=== PATIENT | female | born 1935 | race Caucasian/White ===

== ENCOUNTER 2019-06-08 08:42 | Inpatient (IN) | payer MEDICARE ==
[~2019-06-08] VITALS: Ht 149.9 cm; Wt 49.8 kg
[~2019-06-08 08:42] MED LIST: BIMA2.5D4 OU; METO50TA7 PO
[2019-06-08 09:35] LABS: BASOPHILS % (AUTO) 0 % (0-10); EOSINOPHILS % (AUTO) 0 % (0-10); HEMATOCRIT 40 % (35-52); HEMOGLOBIN 15.1 G/DL (11.5-16.0); LYMPHOCYTES # (AUTO) 1.3 X 10^3 (1.0-4.0); LYMPHOCYTES % (AUTO) 22 % (12-44); MEAN CORPUSCULAR HEMOGLOBIN 31 PG (25-34); MEAN CORPUSCULAR HGB CONC 38 G/DL (32-36); MEAN CORPUSCULAR VOLUME 82 FL (80-99); MEAN PLATELET VOLUME 8.4 FL (7.4-10.4); MONOCYTES # (AUTO) 0.6 X 10^3 (0.0-1.0); MONOCYTES % (AUTO) 11 % (0-12); NEUTROPHILS # (AUTO) 3.8 X 10^3 (1.8-7.8); NEUTROPHILS % (AUTO) 67 % (42-75); PLATELET COUNT 236 10^3/uL (130-400); RED CELL DISTRIBUTION WIDTH 11.2 % (10.0-14.5); WHITE BLOOD COUNT 5.7 10^3/uL (4.3-11.0)
[2019-06-08] MEDS ORDERED: TIMO5DRO5 OU (09:35)
[2019-06-08] MEDS ORDERED: AMLO5TAB9 PO (09:35)
[2019-06-08 09:47] LABS: BILIRUBIN,URINE NEGATIVE (NEGATIVE); CLARITY,URINE SL CLOUDY; COLOR,URINE YELLOW; GLUCOSE, URINE (UA) NEGATIVE (NEGATIVE); KETONES,URINE NEGATIVE (NEGATIVE); LEUKOCYTE ESTERASE ,URINE 2+ (NEGATIVE); NITRITE,URINE POSITIVE (NEGATIVE); PROTEIN,URINE TRACE (NEGATIVE)
[2019-06-08 09:56] LABS: ALANINE AMINOTRANSFERASE 32 U/L (0-55); ALBUMIN 4.1 GM/DL (3.2-4.5); ALKALINE PHOSPHATASE 102 U/L (40-136); BILIRUBIN,TOTAL 0.7 MG/DL (0.1-1.0); BUN/CREATININE RATIO 13; CALCIUM 8.8 MG/DL (8.5-10.1); CARBON DIOXIDE 24 MMOL/L (21-32); CHLORIDE 75 MMOL/L (98-107); CREATININE SERUM 0.75 MG/DL (0.60-1.30); GFR ESTIMATED > 60; GLUCOSE 110 MG/DL (70-105); MAGNESIUM 1.9 MG/DL (1.6-2.4); POTASSIUM 3.2 MMOL/L (3.6-5.0)
[2019-06-08 09:56] LABS: AMORPHOUS SEDIMENT,UR MOD AMOR PHOSPHATE /LPF; BACTERIA,URINE LARGE /HPF; WBC,URINE 25-50 /HPF
[2019-06-08] MEDS ORDERED: cefTRIAXone FOR IV USE 1,000 MG in WATER (STERILE) FOR INJECTION 10 ML IV ONE (10:00)
[2019-06-08] MEDS ORDERED: NS IV 1000 ML 1,000 ML IV SCH (10:00)
[2019-06-08 10:03] LABS: SODIUM 112 MMOL/L (135-145)
[2019-06-08] MEDS ORDERED: POTASSIUM CL 10MEQ/50ML IVPB 50 ML IV ONE (10:15)
--- NOTE | 2019-06-08 10:28 | ED General ---
General Chief Complaint: General Problems/Pain Stated Complaint: WEAKNESS Nursing Triage Note: pt presents to ed accompanied by with complaints of weakness, diffiuclty urinating, difficulty moving her bowels. pt was seen at dr mclaughlin on and told her sodium was low. frandy instructed her to stop her benazepril and double take the dose of amlodipine. Nursing Sepsis Screen: No Definite Risk Source of Information: Patient, Old Records Exam Limitations: No Limitations History of Present Illness Date Seen by Provider: Jun 08, 2019 Time Seen by Provider: 09:02 Initial Comments This 83-year-old woman presents to the emergency room with progressive weakness. She has been seen by Dr. Hinojosa and is known to have hyponatremia. They were working without on an outpatient basis by encouraging Gatorade and changing medications. Patient also reports decreased urine output. She is very weak and now and can hardly walk to the bathroom. Her is having a difficult time taking care of her. Allergies and Home Medications Allergies Coded Allergies: Sulfa (Sulfonamide Antibiotics) (Verified Allergy, Unknown, 06/08/19) Home Medications Bimatoprost 2.5 Ml Drops, 1 DROP OP DAILY, (Reported) Patient Home Medication List Home Medication List Reviewed: Yes Review of Systems Review of Systems Constitutional: see HPI EENTM: no symptoms reported Respiratory: no symptoms reported Cardiovascular: no symptoms reported Gastrointestinal: loss of appetite Genitourinary: see HPI : No Musculoskeletal: no symptoms reported Skin: no symptoms reported Psychiatric/Neurological: See HPI Hematologic/Lymphatic: No Symptoms Reported Immunological/Allergic: no symptoms reported Past Ifgmgpx-Nyalds-Ksvtmw Hx Past Med/Social Hx: Reviewed and Corrections made Patient Social History Alcohol Use: Denies Use Recreational Drug Use: No Smoking Status: Never a Smoker Recent Foreign Travel: No Contact w/Someone Who Travel: No Recent Infectious Disease Expo: No Physical Abuse: No Sexual Abuse: No Mistreated: No Fear: No Seasonal Allergies Seasonal Allergies: No Past Medical History Surgeries: Yes (lumpectomy) Eye Surgery, Hysterectomy Respiratory: No Cardiac: Yes Hypertension Neurological: No Reproductive Disorders: No Sexually Transmitted Disease: No Genitourinary: No Gastrointestinal: No Musculoskeletal: No Endocrine: No Cancer: Yes Skin Psychosocial: No Integumentary: No Blood Disorders: No Family Medical History No Pertinent Family Hx Physical Exam Vital Signs Vital Signs - First Documented 06/08/19 09:25 Temp 36.4 Pulse 82 Resp 20 B/P (MAP) 147/81 (103) Pulse Ox 97 Capillary Refill : Less Than 3 Seconds Height, Weight, BMI Height: 5'0" Weight: 106lbs. oz. 48.724577du; 21.00 BMI Method:Stated General Appearance: No Apparent Distress, WD/WN, Thin HEENT: PERRL/EOMI, Normal ENT Inspection, Pharynx Normal Neck: Normal Inspection Respiratory: Lungs Clear, Normal Breath Sounds, No Accessory Muscle Use Cardiovascular: Regular Rate, Rhythm, No Edema, No Murmur Gastrointestinal: Normal Bowel Sounds, Non Tender, Soft Extremity: Normal Inspection, No Pedal Edema Neurologic/Psychiatric: Alert, Oriented x3, No Motor/Sensory Deficits, Normal Mood/Affect, senior chemist II-XII Norm as Tested Skin: Normal Color, Warm/Dry Progress/Results/Core Measures Suspected Sepsis Recent Fever Within 48 Hours: No Infection Criteria Present: None New/Unexplained Altered Menta: No Sepsis Screen: No Definite Risk SIRS Temperature: Pulse: 82 Respiratory Rate: 20 Laboratory Tests 06/08/19 09:29: White Blood Count 5.7 Blood Pressure 147 /81 Mean: 103 Laboratory Tests 06/08/19 09:29: Creatinine 0.75, Platelet Count 236, Total Bilirubin 0.7 Results/Orders Lab Results Laboratory Tests Test 06/08/19 09:29 06/08/19 09:41 Range/Units White Blood Count 5.7 4.3-11.0 10^3/uL Red Blood Count 4.86 4.35-5.85 10^6/uL Hemoglobin 15.1 11.5-16.0 G/DL Hematocrit 40 35-52 % Mean Corpuscular Volume 82 80-99 FL Mean Corpuscular Hemoglobin 31 25-34 PG Mean Corpuscular Hemoglobin Concent 38 H 32-36 G/DL Red Cell Distribution Width 11.2 10.0-14.5 % Platelet Count 236 130-400 10^3/uL Mean Platelet Volume 8.4 7.4-10.4 FL Neutrophils (%) (Auto) 67 42-75 % Lymphocytes (%) (Auto) 22 12-44 % Monocytes (%) (Auto) 11 0-12 % Eosinophils (%) (Auto) 0 0-10 % Basophils (%) (Auto) 0 0-10 % Neutrophils # (Auto) 3.8 1.8-7.8 X 10^3 Lymphocytes # (Auto) 1.3 1.0-4.0 X 10^3 Monocytes # (Auto) 0.6 0.0-1.0 X 10^3 Eosinophils # (Auto) 0.0 0.0-0.3 10^3/uL Basophils # (Auto) 0.0 0.0-0.1 10^3/uL Sodium Level 112 *L 135-145 MMOL/L Potassium Level 3.2 L 3.6-5.0 MMOL/L Chloride Level 75 L 98-107 MMOL/L Carbon Dioxide Level 24 21-32 MMOL/L Anion Gap 13 5-14 MMOL/L Blood Urea Nitrogen 10 7-18 MG/DL Creatinine 0.75 0.60-1.30 MG/DL Estimat Glomerular Filtration Rate > 60 BUN/Creatinine Ratio 13 Glucose Level 110 H 70-105 MG/DL Calcium Level 8.8 8.5-10.1 MG/DL Corrected Calcium 8.7 8.5-10.1 MG/DL Magnesium Level 1.9 1.6-2.4 MG/DL Total Bilirubin 0.7 0.1-1.0 MG/DL Aspartate Amino Transf (AST/SGOT) 34 5-34 U/L Alanine Aminotransferase (ALT/SGPT) 32 0-55 U/L Alkaline Phosphatase 102 40-136 U/L Total Protein 7.0 6.4-8.2 GM/DL Albumin 4.1 3.2-4.5 GM/DL Urine Color YELLOW Urine Clarity SL CLOUDY Urine pH 8.0 5-9 Urine Specific Cameron 1.015 L 1.016-1.022 Urine Protein TRACE H NEGATIVE Urine Glucose (UA) NEGATIVE NEGATIVE Urine Ketones NEGATIVE NEGATIVE Urine Nitrite POSITIVE H NEGATIVE Urine Bilirubin NEGATIVE NEGATIVE Urine Urobilinogen 0.2 < = 1.0 MG/DL Urine Leukocyte Esterase 2+ H NEGATIVE Urine RBC (Auto) NEGATIVE NEGATIVE Urine RBC 2-5 H /HPF Urine WBC 25-50 H /HPF Urine Squamous Epithelial Cells NONE /HPF Urine Crystals NONE /LPF Urine Amorphous Sediment MOD NOEMI PHOSPHATE H /LPF Urine Bacteria LARGE H /HPF Urine Casts NONE /LPF Urine Mucus NEGATIVE /LPF Urine Culture Indicated YES My Orders Orders - WENCESLAO ORTIZ MD Cbc With Automated Diff (06/08/19 09:02) Comprehensive Metabolic Panel (06/08/19 09:02) Magnesium (06/08/19 09:02) Ua Culture If Indicated (06/08/19 09:02) Ed Iv/Invasive Line Start (06/08/19 09:02) Urine Culture (06/08/19 09:41) Ns Iv 1000 Ml (Sodium Chloride 0.9%) (06/08/19 10:00) Ceftriaxone For Iv Use (Rocephin For I (06/08/19 10:00) Potassium Cl 10meq/50ml Ivpb (Kcl 10 Meq (06/08/19 10:15) Medications Given in ED Current Medications Medications Dose Ordered Sig/Kary Route Start Time Stop Time Status Last Admin Dose Admin Ceftriaxone Sodium 1000 mg/ Sterile Water 10 ml @ 200 mls/hr ONCE ONCE IV 06/08/19 10:00 06/08/19 10:02 DC 06/08/19 10:09 200 MLS/HR Potassium Chloride 50 ml @ 50 mls/hr ONCE ONCE IV 06/08/19 10:15 06/08/19 11:14 06/08/19 10:10 50 MLS/HR Vital Signs/I&O 06/08/19 09:25 Temp 36.4 Pulse 82 Resp 20 B/P (MAP) 147/81 (103) Pulse Ox 97 Capillary Refill : Less Than 3 Seconds Blood Pressure Mean: 103 Progress Note : Time: 10:31 Progress Note Patient was found to have a urinary tract infection which is being treated with Rocephin. Potassium was 3.2 and she is receiving a 10 mEq dose of IV potassium. Sodium was 112. She is receiving a 1 L normal saline bolus of 500 mL per hour. IV fluids to follow will be normal saline +20 mEq of potassium to run at 100 mL per hour. Patient is being admitted to Dr. Casas. Departure Communication (Admissions) Time/Spoke to Admitting Phy: 10:15 Dr. Casas Impression Primary Impression: Hyponatremia Additional Impressions: Hypokalemia Weakness Urinary tract infection Qualified Codes: N39.0 - Urinary tract infection, site not specified Disposition: ADMITTED INPATIENT Condition: Improved Admissions Decision to Admit Reason: Admit from ER (General) Decision to Admit/Date: Jun 08, 2019 Time/Decision to Admit Time: 10:00 Departure-Patient Inst. Referrals: UGO HINOJOSA MD (PCP/Family) Primary Care Physician Copy Copies To 1: UGO HINOJOSA MD, JOSHUA T MD Jun 08, 2019 10:27
[2019-06-08 11:00] VITALS: BP 158/74
--- NOTE | 2019-06-08 11:00 | NUR ---
BENOIT MADDEN admitted to room 402-1, with an admitting diagnosis of UTI and Hyponatremia, on 06/08/19 from ED VIA stretcher, accompanied by family and staff.BENOIT MADDEN introduced to surroundings, call light, bed controls, phone, TV, temperature control, lights, meal times, smoking policy, visitor policy, side rail policy, bathrooms and showers. Patient Rights given to patient in the handbook. BENOIT MADDEN verbalizes understanding that [facility] is not responsible for the loss or damage to any personal effects or valuables that are kept in the patients posession during their hospitalization. BENOIT MADDEN verbalizes understanding of Interdisciplinary Patient Education. Patient and/or family were informed about the Rapid Response Team and its purpose.
[2019-06-08 12:00] VITALS: BP 162/70
[2019-06-08] MEDS ORDERED: ONDANSETRON 4 MG/2 ML (SDV) Z0FRAN IV PRN ×2 (12:15→13:00)
[2019-06-08] MEDS ORDERED: CATHETER FLUSH 10 ML SYR IV PRN (12:15)
[2019-06-08] MEDS: NS W/KCL 20 MEQ/L 1,000 ML IV SCH ×2 (12:29→22:06)
[2019-06-08] MEDS ORDERED: FLEET ENEMA ADULT 1 EA BTL PR PRN (12:45)
[2019-06-08] MEDS ORDERED: BISACODYL 10 MG SUPP (DULCOLAX) PR PRN (12:45)
[2019-06-08] MEDS ORDERED: SENNA W/DOCUSATE (SENOKOT S) TABLET PO PRN (12:45)
[2019-06-08] MEDS ORDERED: ACETAMINOPHEN 325 MG TABLET PO PRN (13:00)
[2019-06-08] MEDS ORDERED: ANTACID SUSP 30 ML UDC (MYLANTA) PO PRN (13:00)
[2019-06-08] MEDS ORDERED: MILK OF MAGNESIA 400 MG/5 ML 30 ML UDC PO PRN (13:00)
--- NOTE | 2019-06-08 13:07 | History & Physical-Hospitalist ---
KORIN ETIENNE,MED STUDENT 06/08/19 1307: History of Present Illness HPI/Chief Complaint Patient is an 83 y/o female who presents with urinary urgency and weakness. Symptoms started one week ago including general malaise and weakness. She first noticed urinary urgency 2 days ago. She went to Dr. Hinojosa for evaluation 2 days ago and was found to be hyponatremic. He stopped her benzapril and doubled her amlodipine dose. He also told her to decrease free water intake and drink gatorade. She came to the ED today due to still feeling weak as well as urinary symptoms for the past 2 days. Associated symptoms include poor appetite, poor sleep, nausea, and constipation. She denies fever, chills, abdominal pain, headaches, or confusion. No history of heart failure, liver problems, or renal disease. Date Seen 06/08/19 Time Seen by a Provider: 12:45 Attending Physician Guera Casas MD PCP Turner Hinojosa MD Referring Physician Date of Admission Jun 08, 2019 at 10:18 Home Medications & Allergies Home Medications Reviewed patient Home Medication Reconciliation performed by pharmacy medication reconciliations wind technician and/or nursing. Patients Allergies have been reviewed. Allergies Allergies Coded Allergies Sulfa (Sulfonamide Antibiotics) (Verified Allergy, Unknown, 06/08/19) Past Wxyaegu-Dkglau-Dmxqoa Hx Past Med/Social Hx: Reviewed and Corrections made Patient Social History Marrital Status: Alcohol Use: Denies Use Recreational Drug Use: No Smoking Status: Never a Smoker Recent Foreign Travel: No Contact w/other who traveled: No Recent Infectious Disease Expo: No Immunizations Up To Date Date of Influenza Vaccine: Feb 23, 2020 Seasonal Allergies Seasonal Allergies: No Past Medical History Surgeries: Breast (biopsy), Eye Surgery, Hysterectomy Cardiac: Hypertension Reproductive: No Sexually Transmitted Disease: No HEENT: Glaucoma Cancer: Skin History of Blood Disorders: No Family History No Pertinent Family Hx Review of Systems Constitutional: No chills, No fever; malaise, weakness; No weight loss EENTM: No hearing loss, No vision loss Respiratory: No cough, No short of breath Cardiovascular: No chest pain, No palpitations Gastrointestinal: No abdominal pain; constipation, nausea; No vomiting Genitourinary: No dysuria; other (urgency) Musculoskeletal: No joint pain, No joint swelling Skin: No lesions, No rash Psychiatric/Neurological: Denies Headache, Denies Paresthesia Physical Exam Physical Exam Vital Signs Vital Signs - First Documented 06/08/19 06/08/19 09:25 10:58 Temp 36.4 Pulse 82 Resp 20 B/P (MAP) 147/81 (103) Pulse Ox 97 O2 Delivery Room Air Capillary Refill : Less Than 3 Seconds Height, Weight, BMI Height: 5'0" Weight: 106lbs. oz. 48.348919fm; 22.16 BMI Method:Stated General Appearance: No Apparent Distress, WD/WN HEENT: Pharynx Normal, Other (dry mucous membranes) Neck: Non Tender, Supple Respiratory: Chest Non Tender, Lungs Clear, Normal Breath Sounds, No Accessory Muscle Use, No Respiratory Distress Cardiovascular: Regular Rate, Rhythm, No Murmur Gastrointestinal: Non Tender, Soft; No Distended Extremity: No Calf Tenderness, No Pedal Edema Neurologic/Psychiatric: Alert, Normal Mood/Affect Skin: Normal Color, Warm/Dry Results Results/Procedures Labs Laboratory Tests 06/08/19 09:29 Patient resulted labs reviewed. Assessment/Plan Admission Diagnosis Hyponatremia UTI Admission Status: Inpatient Order (span 2 midnights) Assessment and Plan Hyponatremia - IV NS 100 ml/hr - Free water restriction, encouraged her to drink gatorade - Chest x ray - Recheck BMP tonight - Check TSH - Urine sodium and potassium UTI - IV Ceftriaxone - IV fluids - Await culture and sensitivity Hypokalemia - Replace Hypertension - Hold benzapril and amlodipine due to hyponatremia - Will continue to monitor Constipation - Dulcolax suppository - Senna - Fleet enema Malaise - Tylenol as needed for discomfort - Zofran as needed for nausea - PT/OT Clinical Quality Measures DVT/VTE Risk/Contraindication: Risk Factor Score Per Nursin RFS Level Per Nursing on Admit: 2=Moderate GUERA CASAS MD 06/08/19 1525: Assessment/Plan Assessment and Plan Pt admitted with generalized weakness, UTI, and refractory severe hyponatremia. She failed outpatient management by her PCP as her sodium worsened after discontinuation of home joaquín inhibitor. She is mentating well but overall suffering from malaise. She has not had any seizures. Her biggest concern is her constipation at this time. Bowel regimen ordered. Will continue her on Rocephin for her UTI and await c/s. Will continue with NS at this time and closely monitor her sodium correction. This appears to be a somewhat subacute to chronic issue so will over hypertonic saline in order to prevent overcorrection. I did call and discuss this with Dr Carlson who I consulted and is agreement with plan. Appreciate his assistance. Will order PT/OT. Supervisory-Addendum Brief Verification & Attestation Participated in pt care: history, MDM, physical Personally performed: exam, history, MDM, supervision of care Care discussed with: Medical Student Procedures: n/a Results interpretation: Verified all documentation Verification and Attestation of Medical Student E/M Service A medical student performed and documented this service in my presence. I revi ewed and verified all information documented by the medical student and made modifications to such information, when appropriate. I personally performed the physical exam and medical decision making. Guera Casas, Jun 08, 2019,15:19 KORIN ETIENNE,MED STUDENT Jun 08, 2019 13:07 GUERA CASAS MD Jun 08, 2019 15:25
--- NOTE | 2019-06-08 13:48 | Diagnostic Imaging Report ---
INDICATION: Hyponatremia. COMPARISON: Comparison is made to the prior from September 15, 2015. FINDINGS: There is a chronic region of apparent scarring within the mid right lung which is also present on the 2016 exam. There is some minimal left base atelectasis. Lungs otherwise appear clear. There is no effusion. There is no pneumothorax. Heart size appears appropriate. The central pulmonary vascularity is appropriate without evidence of failure. IMPRESSION: 1. No radiographic evidence of an acute cardiopulmonary process. There is stable scarring within the mid right lung. Dictated by: Dictated on workstation # [id number]
[2019-06-08 14:25] LABS: BUN/CREATININE RATIO 14; CARBON DIOXIDE 20 MMOL/L (21-32); CHLORIDE 84 MMOL/L (98-107); CREATININE SERUM 0.66 MG/DL (0.60-1.30); GFR ESTIMATED > 60; GLUCOSE 96 MG/DL (70-105); POTASSIUM 3.3 MMOL/L (3.6-5.0)
[2019-06-08 14:29] LABS: SODIUM 116 MMOL/L (135-145)
[2019-06-08 15:49] VITALS: BP 140/63
[2019-06-08 19:20] VITALS: BP 120/58
[2019-06-08] MEDS: MELATONIN 3 MG TABLET PO PRN (21:01)
[2019-06-08 22:46] LABS: BUN/CREATININE RATIO 12; CARBON DIOXIDE 20 MMOL/L (21-32); CHLORIDE 91 MMOL/L (98-107); CREATININE SERUM 0.68 MG/DL (0.60-1.30); GFR ESTIMATED > 60; GLUCOSE 69 MG/DL (70-105); POTASSIUM 3.3 MMOL/L (3.6-5.0)
[2019-06-08 22:47] LABS: SODIUM 121 MMOL/L (135-145)
--- NOTE | 2019-06-08 23:09 | NUR ---
BMP TAKEN TONIGHT, NA IS 121, WHICH IS A CRITICAL VALUE. DR FULTON NOTIFIED. SHE SAID TO REPEAT IN AM.
[2019-06-09] VITALS: BP 113/56
[2019-06-09 04:00] VITALS: BP 139/77
[2019-06-09 05:39] LABS: HEMOGLOBIN 12.2 G/DL (11.5-16.0); MEAN PLATELET VOLUME 10.1 FL (7.4-10.4); RED CELL DISTRIBUTION WIDTH 11.4 % (10.0-14.5); WHITE BLOOD COUNT 6.6 10^3/uL (4.3-11.0)
[2019-06-09 05:57] LABS: BUN/CREATININE RATIO 12; CALCIUM 7.6 MG/DL (8.5-10.1); CARBON DIOXIDE 17 MMOL/L (21-32); CHLORIDE 97 MMOL/L (98-107); CREATININE SERUM 0.66 MG/DL (0.60-1.30); GFR ESTIMATED > 60; GLUCOSE 65 MG/DL (70-105); POTASSIUM 4.1 MMOL/L (3.6-5.0)
[2019-06-09 05:59] LABS: SODIUM 124 MMOL/L (135-145)
--- NOTE | 2019-06-09 06:02 | NUR ---
CRITICAL NA THIS MORNING AT 124. CONTINUES TO IMPROVE. DR FULTON NOTIFIED.
[2019-06-09] MEDS: cefTRIAXone 1,000 MG/SWFI 10 ML IV PUSH IV SCH ×2 (08:12)
[2019-06-09] MEDS: NS W/KCL 20 MEQ/L 1,000 ML IV SCH ×2 (08:12→18:19)
[2019-06-09 08:19] VITALS: BP 138/63
--- NOTE | 2019-06-09 10:04 | Progress Note - Hospitalist ---
KORIN ETIENNE,MED STUDENT 06/09/19 1004: Subjective HPI/CC On Admission Date Seen by Provider: Jun 09, 2019 Time Seen by Provider: 08:16 Patient is an 83 y/o female who presents with urinary urgency and weakness. Symptoms started one week ago including general malaise and weakness. She first noticed urinary urgency 2 days ago. She went to Dr. Hinojosa for evaluation 2 days ago and was found to be hyponatremic. He stopped her benzapril and doubled her amlodipine dose. He also told her to decrease free water intake and drink gatorade. She came to the ED today due to still feeling weak as well as urinary symptoms for the past 2 days. Associated symptoms include poor appetite, poor sleep, nausea, and constipation. She denies fever, chills, abdominal pain, headaches, or confusion. No history of heart failure, liver problems, or renal disease. Subjective/Events-last exam Patient feeling much better today. She had 2 bowel movements yesterday. Urinary symptoms also improving. Denies headache, confusion, seizures, chest pain, or shortness of breath. Denies any new complaints or concerns at this time. Objective Exam Vital Signs Vital Signs Date Time Temp Pulse Resp B/P (MAP) Pulse Ox O2 Delivery O2 Flow Rate FiO2 06/09/19 08:19 36.5 96 18 138/63 (88) 95 Room Air Capillary Refill : Less Than 3 Seconds General Appearance: No Apparent Distress, WD/WN HEENT: Moist Mucous Membranes Neck: Non Tender, Supple Respiratory: Chest Non Tender, Lungs Clear, Normal Breath Sounds, No Accessory Muscle Use, No Respiratory Distress Cardiovascular: Regular Rate, Rhythm, No Murmur Extremity: No Calf Tenderness, No Pedal Edema Neurologic/Psychiatric: Alert, Normal Mood/Affect Results/Procedures Lab Laboratory Tests 06/08/19 13:45 06/08/19 22:22 06/09/19 04:54 Patient resulted labs reviewed. Assessment/Plan Assessment and Plan Assess & Plan/Chief Complaint Hyponatremia - Improved to 124 today, continue to monitor - IV NS 100 ml/hr - Free water restriction, encouraged her to drink gatorade - Chest x ray was negative for acute process - Recheck BMP this afternoon - TSH normal at 2.1 - Urine sodium and potassium pending UTI - Continue IV Ceftriaxone - IV fluids - Culture and sensitivity pending Hypokalemia - Resolved Hypertension - Hold benzapril and amlodipine due to hyponatremia - Will continue to monitor Constipation - Resolved - Stool softeners available as needed Malaise - Tylenol as needed for discomfort - Zofran as needed for nausea - PT/OT Clinical Quality Measures DVT/VTE Risk/Contraindication: Risk Factor Score Per Nursin RFS Level Per Nursing on Admit: 2=Moderate GUERA FULTON MD 06/09/19 1129: Assessment/Plan Assessment and Plan Assess & Plan/Chief Complaint Pt reports feeling much better. Up in the bathroom brushing her teeth when I ent ered the room. Walking independently from bathroom without difficulty. Sodium much improved today. Will check the Na again this afternoon but keep fluids at current rate because oral intake is still poor. BP is WNL so continue to hold home medications. Diagnosis/Problems Diagnosis/Problems (1) Hyponatremia Status: Acute (2) Urinary tract infection Status: Acute Qualifiers: Qualified Codes: N39.0 - Urinary tract infection, site not specified (3) Hypokalemia Status: Acute (4) Weakness Status: Acute (5) Hypertension Status: Acute Supervisory-Addendum Brief Verification & Attestation Participated in pt care: history, MDM, physical Personally performed: exam, history, MDM, supervision of care Care discussed with: Medical Student Procedures: n/a Results interpretation: Verified all documentation Verification and Attestation of Medical Student E/M Service A medical student performed and documented this service in my presence. I reviewed and verified all information documented by the medical student and made modifications to such information, when appropriate. I personally performed the physical exam and medical decision making. Guera Fulton, Jun 09, 2019,11:29 KORIN ETIENNE,MED STUDENT Jun 09, 2019 10:04 GUERA FULTON MD Jun 09, 2019 11:29
[2019-06-09 12:00] VITALS: BP 139/68
[2019-06-09 13:09] LABS: BUN/CREATININE RATIO 13; CALCIUM 7.9 MG/DL (8.5-10.1); CARBON DIOXIDE 21 MMOL/L (21-32); CHLORIDE 96 MMOL/L (98-107); CREATININE SERUM 0.69 MG/DL (0.60-1.30); GFR ESTIMATED > 60; GLUCOSE 86 MG/DL (70-105); POTASSIUM 3.7 MMOL/L (3.6-5.0)
[2019-06-09 13:29] LABS: SODIUM 125 MMOL/L (135-145)
[2019-06-09 15:57] VITALS: BP 145/71
[2019-06-09 19:44] VITALS: BP 124/70
[2019-06-09] MEDS: MELATONIN 3 MG TABLET PO PRN (21:00)
[2019-06-10 00:17] VITALS: BP 151/69
[2019-06-10] MEDS: NS W/KCL 20 MEQ/L 1,000 ML IV SCH ×2 (04:20→15:39)
[2019-06-10 04:55] VITALS: BP 134/63
[2019-06-10 07:33] VITALS: BP 140/67
[2019-06-10] MEDS ORDERED: CARB15DR OU (07:52)
[2019-06-10] MEDS ORDERED: VIT1CAPS44 PO (07:52)
--- NOTE | 2019-06-10 07:53 | NUR ---
SPOKE WITH THE PT (AND HER DAUGHTER AND - PT HAS HOME MEDS WITH HER) WELL GOING THRU THE EXT MED HISTORY TO COMPLETE THE MED REC. AT A RECENT DR'S APPT PT WAS TOLD TO TAKE TWO AMLODIPINE 5 MG TABS TO EQUAL 10 MG DAILY AND THEN TO STOP BENAZEPRIL/HCTZ. OTC MEDS: PRESERVISION REFRESH
[2019-06-10] MEDS: cefTRIAXone 1,000 MG/SWFI 10 ML IV PUSH IV SCH ×2 (08:40)
[2019-06-10 10:03] LABS: BUN/CREATININE RATIO 10; CALCIUM 7.8 MG/DL (8.5-10.1); CARBON DIOXIDE 24 MMOL/L (21-32); CHLORIDE 97 MMOL/L (98-107); CREATININE SERUM 0.63 MG/DL (0.60-1.30); GFR ESTIMATED > 60; GLUCOSE 107 MG/DL (70-105); MAGNESIUM 1.5 MG/DL (1.6-2.4); POTASSIUM 3.8 MMOL/L (3.6-5.0); SODIUM 128 MMOL/L (135-145)
--- NOTE | 2019-06-10 10:19 | Physical Therapy Evaluation ---
PT Evaluation-General Medical Diagnosis Admission Date Jun 08, 2019 at 10:18 Medical Diagnosis: hyponatremia/UTI/hypokalemia Onset Date: Jun 08, 2019 Therapy Diagnosis Therapy Diagnosis: debility/weakness Height/Weight Height (Feet): 5 Height (Inches): 0 Weight (Pounds): 106 Precautions Precautions/Isolations: Fall Prevention, Standard Precautions Weight Bear Status Right Lower Extremity: Right Weight Bearing/Tolerated Left Lower Extremity: Left Weight Bearing/Tolerated Referral Physician: Augusto Reason for Referral: Evaluation/Treatment Medical History Pertinent Medical History: HTN Current History ER secondary to weakness and difficulty urinating Reviewed History: Yes Social History Home: Single Level Current Living Status: Spouse Prior Prior Level of Function SCALE: Activities may be completed with or without assistive devices. 0-Erypgjtrfx-rfpkmcw completes the activity by him/herself with no assistance from a helper. 5-Set-up or Clean-up Assistance-helper sets up or cleans up; patient completes activity. [place] assists only prior to or following the activity. 4-Supervision or Touching Assistance-helper provides verbal cues and/or touching/steadying and/or contact guard assistance as patient completes activity. Assistance may be provided throughout the activity or intermittently. 3-Partial/Moderate Assistance-helper does LESS THAN HALF the effort. [place] lif ts, holds or supports trunk or limbs, but provides less than half the effort. 2-Substantial/Maximal Assistance-helper does MORE THAN HALF the effort. [place] lifts or holds trunk or limbs and provides more than half the effort. 7-Qnccjymhj-alaknr does ALL the effort. Patient does none of the effort to complete the activity. Or, the assistance of 2 or more helpers is required for the patient to complete the activity. If activity was not attempted, code reason: 7-Patient Refused. 9-Not Applicable-not attempted and the patient did not perform the activity before the current illness, exacerbation or injury. 10-Not Attempted due to Environmental Limitations-(lack of equipment, weather restraints, etc.). 88-Not Attempted due to Medical Conditions or Safety Concerns. Bed Mobility: 6 Transfers (B,C,W/C): 6 Gait: 6 Stairs: 6 Indoor Mobility (Ambulation): Independent Stairs: Independent Prior Devices Use: None PT Evaluation-Current Subjective Patient agrees to PT. Spouse present. Pain Numeric Pain Scale: 0-No Pain Location: No Pain Reported Objective Patient Orientation: Normal For Age Attachments: IV ROM/Strength ROM Lower Extremities bilateral LE WFL Strength Lower Extremities 4-/5 grossly bilateral LE Integumentary/Posture Integumentary refer to nursing notes Bowel Incontinence: No Bladder Incontinence: No Posture kyphotic Neuromuscular (Tone, Coordination, Reflexes) grossly intact Sensory Vision: Wears Glasses Hearing: Impaired Sensation Right Lower Extremit: Intact Sensation Left Lower Extremity: Intact Transfers Roll Left to Right (QC): 6 Sit to Lying (QC): 6 Lying to Sitting/Side of Bed(Q: 6 Sit to Stand (QC): 6 Chair/Adc-yp-Dqnlc Xfer(QC): 6 Gait Does the Patient Walk?: Yes Mode of Locomotion: Walk Anticipated Mode of Locomotion: Walk Walk 10 feet (QC): 6 Walk 50 ft with 2 Turns(QC): 6 Distance: 600' Gait Assistive Device: None Comments/Gait Description slightly unsteady, however, patient adamantly declined FWW use (PT educated patient on FWW use and to increase stability and prevent falls, however, patient continued to decline to attempt to use. Wheelchair Training Does the Pt Use a Wheelchair?: No Balance Sitting Static: Normal Sitting Dynamic: Normal Standing Static: Fair Standing Dynamic: Fair Assessment/Needs 83 y.o. female, will be seen short term by skilled PT to ensure safe return to home with spouse at maximum LOF. Rehab Potential: Fair PT Penitentiary Goals Penitentiary Goals PT Penitentiary Goals Time Frame: Jun 12, 2019 Roll Left & Right (QC): 6 Sit to Lying (QC): 6 Lying-Sitting on Side/Bed(QC): 6 Sit to Stand (QC): 6 Chair/Kqz-gm-Vwuau Xfer(QC): 6 Toilet Transfer (QC): 6 Car Transfer (QC): 6 Does the Patient Walk: Yes Walk 10 feet (QC): 6 Walk 50ft with 2 Turns (QC): 6 Walk 150 ft (QC): 6 Walking 10ft on Uneven Surface: 6 1 Step (curb) (QC): 6 PT Plan Problem List Problem List: Safety Treatment/Plan Treatment Plan: Continue Plan of Care Treatment Plan: Education, Functional Activity Elly, Functional Strength, Gait, Safety, Therapeutic Exercise, Transfers Treatment Duration: Jun 12, 2019 Frequency: 3 times per week Estimated Hrs Per Day: .25 hour per day Patient and/or Family Agrees t: Yes Discharge Recommendations Therapy Discharge Recommendati: Home & Family Time/GCodes Time In: 906 Time Out: 924 Total Billed Treatment Time: 18 Total Billed Treatment 1 visit EVModC 18 min ARELY GARCIA PT Jun 10, 2019 10:19
--- NOTE | 2019-06-10 11:03 | Progress Note - Hospitalist ---
Subjective HPI/CC On Admission Date Seen by Provider: Jun 10, 2019 Time Seen by Provider: 09:00 Patient is an 83 y/o female who presents with urinary urgency and weakness. Symptoms started one week ago including general malaise and weakness. She first noticed urinary urgency 2 days ago. She went to Dr. Hinojosa for evaluation 2 days ago and was found to be hyponatremic. He stopped her benzapril and doubled her amlodipine dose. He also told her to decrease free water intake and drink gatorade. She came to the ED today due to still feeling weak as well as urinary symptoms for the past 2 days. Associated symptoms include poor appetite, poor sleep, nausea, and constipation. She denies fever, chills, abdominal pain, headaches, or confusion. No history of heart failure, liver problems, or renal disease. Subjective/Events-last exam She reports feeling better today. She still feels a bit weak. She wants to take a shower today. She denies any headache or confusion. She denies any chest pain or shortness of breath. She denies any abdominal pain, nausea, or vomiting. Objective Exam Vital Signs Vital Signs Date Time Temp Pulse Resp B/P (MAP) Pulse Ox O2 Delivery O2 Flow Rate FiO2 06/10/19 08:00 96 Room Air 06/10/19 07:33 37.1 92 18 140/67 (91) Capillary Refill : Less Than 3 Seconds General Appearance: No Apparent Distress, Thin Respiratory: Lungs Clear, Normal Breath Sounds, No Respiratory Distress Cardiovascular: Regular Rate, Rhythm, No Edema, No Murmur Gastrointestinal: Normal Bowel Sounds, Non Tender, Soft Extremity: Normal Inspection, Non Tender, No Pedal Edema Neurologic/Psychiatric: Alert, Oriented x3, No Motor/Sensory Deficits, Normal Mood/Affect Skin: Normal Color, Warm/Dry Results/Procedures Lab Laboratory Tests 06/09/19 12:43 06/10/19 09:04 Patient resulted labs reviewed. 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 coli urinary tract infection Status: Acute (3) Hypomagnesemia Status: Acute Clinical Quality Measures DVT/VTE Risk/Contraindication: Risk Factor Score Per Nursin RFS Level Per Nursing on Admit: 2=Moderate YURY OCONNOR MD Jun 10, 2019 11:03
--- NOTE | 2019-06-10 11:05 | Occupational Therapy Eval ---
OT Evaluation-General/PLF Medical Diagnosis Admission Date Jun 08, 2019 at 10:18 Medical Diagnosis: hyponatremia/UTI/hypokalemia Onset Date: Jun 08, 2019 Therapy Diagnosis Therapy Diagnosis: Decreased ADL status Height/Weight Height (Feet): 5 Height (Inches): 0 Weight (Pounds): 106 Precautions Precautions/Isolations: Fall Prevention, Standard Precautions Safety Interventions: Notify Family, Reorient-PRN Weight Bear Status Weight Bearing Restriction: Weight Bearing/Tolerated Referral Physician: Augusto Referral Reason: Activity Tolerance, Self Care, Evaluation/Treatment, Strengthening/ROM Medical History Pertinent Medical History: HTN Additional Medical History see nursing. HTN, glaucoma, hx of skin Ca. Current History Sx became apparent ~1 week prior to admission, pt became progressively weaker with urinary urgency. Pt hyponatremic with UTI. Reviewed History: Yes Social History Home: Single Level Current Living Status: Spouse Entry Into Home: Stairs With Railing (2) Steps Into Home: 2 Steps Inside Home: 0 ADL-Prior Level of Function SCALE: Activities may be completed with or without assistive devices. 9-Ctjsevehca-wzjcflu completes the activity by him/herself with no assistance from a helper. 5-Set-up or Clean-up Assistance-helper sets up or cleans up; patient completes activity. [place] assists only prior to or following the activity. 4-Supervision or Touching Assistance-helper provides verbal cues and/or touching/steadying and/or contact guard assistance as patient completes activity. Assistance may be provided throughout the activity or intermittently. 3-Partial/Moderate Assistance-helper does LESS THAN HALF the effort. [place] lifts, holds or supports trunk or limbs, but provides less than half the effort. 2-Substantial/Maximal Assistance-helper does MORE THAN HALF the effort. [place] lifts or holds trunk or limbs and provides more than half the effort. 7-Uzlaecbeo-hknxfu does ALL the effort. Patient does none of the effort to complete the activity. Or, the assistance of 2 or more helpers is required for the patient to complete the activity. If activity was not attempted, code reason: 7-Patient Refused. 9-Not Applicable-not attempted and the patient did not perform the activity before the current illness, exacerbation or injury. 10-Not Attempted due to Environmental Limitations-(lack of equipment, weather restraints, etc.). 88-Not Attempted due to Medical Conditions or Safety Concerns. ADL PLOF Comments Pt states IND without use of AE. Self Care: Independent Functional Cognition: Independent DME/Equipment: Shower Occupation: retired. Pt in charge of cooking/ cleaning around house. Drive Self: Yes OT Current Status Subjective Pt alert/ oriented. Pt provides hx with accuracy, states now she i sjust weak. States no pain. Pt agreeable to OT eval/ treat. Mental Status/Objective Patient Orientation: Normal For Age Attachments: IV Current Glasses/Contacts: Yes Hearing Aids: Yes Hand Dominance: Right Upper Extremity ROM WFL BUE Upper Extremity Coordination WFL BUE Upper Extremity Sensation WFL BUE Upper Extremity Strength WFL (4-/5) ADL-Treatment Shower/Bathe Self (QC): 4 (SBA, min cues for positioning/ ability to complete) Upper Body Dressing (QC): 4 (s/u with SBA in stance for gown donning.) Lower Body Dressing (QC): 4 (CGA in stance. Pt requires cues to sit during donning breifs, completes on sc with SBA.) On/Off Footwear (QC): 6 (IND with house shoes.) Toileting Hygiene (QC): 4 (SBA) Other Treatments Pt educated on OT role. Pt immediately requests shower. Pt's eval completed and pt s/u for shower. Pt bed mob with SBA, ambulates without AE to toilet, completes with SBA. Pt showers with IV wrapped, completes showering in stance and on sc. Pt hesitant to complete on own, requires cues to initiate showering on own/ with SBA. Pt redresses in gown over IV pole, dresses and returns to bed with SBA. All needs met, call light in reach, left with daughter and . Pt educated on continuation of OT to continue working towards higher functional IND, strength, and confidence during ADL tasks. Education OT Patient Education: Correct positioning, Instructions to caregiver, Modified ADL techniques OT Rn Acute Care Goals Rn Acute Care Goals Time Frame: Jun 17, 2019 Eating (QC): 6 Oral Hygiene (QC): 6 Toileting Hygiene (QC): 6 Shower/Bathe Self (QC): 6 Upper Body Dressing (QC): 6 Lower Body Dressing (QC): 6 On/Off Footwear (QC): 6 Additional Goals: 1-Demonstrate ADL Tasks, 2-Verbalize Understanding, 3- ImproveStrength/Elly 1=Demonstrate adherence to instructed precautions during ADL tasks. 2=Patient will verbalize/demonstrate understanding of assistive d evices/modifications for ADL. 3=Patient will improve strength/tolerance for activity to enable patient to perform ADL's. OT Education/Plan Problem List/Assessment Assessment: Decreased Activ Tolerance, Decreased UE Strength, Impaired Funct Balance, Impaired I ADL's, Impaired Self-Care Skills Discharge Recommendations Plan/Recommendations: Continue POC Therapy Discharge Recommendati: Home & Family Equpiment Recommendations-D/C: Bath Chair Treatment Plan/Plan of Care Treatment,Training & Education: Yes Patient would benefit from OT for education, treatment and training to promote independence in ADL's, mobility, safety and/or upper extremity function for ADL's. Plan of Care: ADL Retraining, Functional Mobility, UE Funct Exercise/Act Treatment Duration: Jun 17, 2019 Frequency: 5 times per week Estimated Hrs Per Day: .25 hour per day Agreement: Yes Rehab Potential: Fair Time/GCodes Start Time: 10:15 Stop Time: 10:55 Total Time Billed (hr/min): 40 Billed Treatment Time 1, EVM (10), ADL 2 (30)= 40 AMANDA LOZADA OTR Jun 10, 2019 11:05
[2019-06-10] MEDS: MAGNESIUM 1 GM/100 ML IVPB 100 ML IV SCH ×3 (11:07→13:25)
[2019-06-10] MEDS ORDERED: DOCUSATE SODIUM 100 MG (COLACE) CAP PO NR (11:15)
[2019-06-10] MEDS ORDERED: polyethylene glycoL POWDER 17 GM (MIRALAX) PACK PO NR (11:15)
[2019-06-10] MEDS ORDERED: ENOXAPARIN 30 MG/0.3 ML (LOVENOX) SYR SC SCH (11:30)
[2019-06-10 11:50] VITALS: BP 143/67
[2019-06-10] MEDS: NITROFURANTOIN 100 MG (MACROBID) CAPSULE PO SCH ×2 (12:14→17:48)
--- NOTE | 2019-06-10 13:14 | NUR ---
"RD ASSESSMENT PMHx: HTN; CA(skin) PT INTERACTION: Pt was awake and pleasant during nutrition assessment. Note daughter present at bedside. Pt states current appetite is improving, as it had been poor for the past 2days. Note avg PO intake of 42% x3meal, per chart review. Pt states following a regular diet at home and has no issues with chewing/swallowing food. Daughter states pt's normal eating habits include small portions of food at meal time. Pt states she is full when she finishes eating her meals here. Pt states no recent issues with n/v at this time. Pt states some recent issues with constipation. Note last BM was 06/08 and pt currently on bowel regimen of bisacodyl PRN; and senna PRN, per chart review. Pt states no recent wt changes. Note unable to determine recent wt hx, per chart review. ABNORMAL NUTRITION-RELATED LAB VALUES LOW: Na 125; Cl 96; Ca 7.9 HIGH: Est. kcal needs: 1707-1021 kcal | 25-30 kcal/kg Est. Pro needs: 50-60 g Pro | 1.0-1.2 g Pro/kg PES STATEMENT: Inadequate oral intake (NI-2.1) related to loss of appetite | constipation as evidenced by pt (daughter) interview | avg PO intake 42% x3meal INTERVENTION: Continue with current diet order of Regular diet. Encouraged pt to eat when able. Pt may benefit from nutrition supplementation if PO intake declines. Will continue to follow and reassess as pt needs and status change. MONITOR/EVALUATE: PO Intake; Plan of Care; Hydration Status; Weight Status; Lab Values Fior Miranda, MS, RD, LD"
[2019-06-10] MEDS ORDERED: HOLD METFORMIN - RECEIVED CONTRAST 20 ML VIAL IV SCH (14:15)
[2019-06-10] MEDS ORDERED: IOHEXOL 350 MG/ML 100 ML (OMNIPAQUE 350) VIAL IV ONE (14:15)
[2019-06-10] MEDS ORDERED: NS 100 ML (IVPB) BAG IV ONE (14:15)
--- NOTE | 2019-06-10 15:30 | Diagnostic Imaging Report ---
PROCEDURE: CT chest with contrast only. TECHNIQUE: Multiple contiguous axial images were obtained through the chest after administration of intravenous contrast. Auto Exposure Controls were utilized during the CT exam to meet ALARA standards for radiation dose reduction. INDICATION: Left basilar infiltrate/atelectasis. FINDINGS: There is minimal dependent atelectasis in the lung bases bilaterally, left greater than right. There is also some focal area of right perihilar pneumonitis. No pleural or pericardial fluid. There is cardiomegaly. There is no pathologically enlarged adenopathy in the chest. There is no pneumothorax. Thoracic aorta is normal in caliber and without evidence of dissection. There are no endobronchial lesions. The visualized intra-abdominal structures are unremarkable. There are degenerative changes in the spine. IMPRESSION: 1. Focal right perihilar pneumonitis. Possibility of underlying neoplastic process in this region however cannot be entirely excluded. Recommend short-interval follow-up imaging to ensure resolution. 2. Cardiomegaly and minimal dependent atelectasis in the lung bases bilaterally. Dictated by: Dictated on workstation # [id number]
[2019-06-10 15:58] VITALS: BP 138/66
[2019-06-10 19:58] VITALS: BP 139/69
[2019-06-10] MEDS: DOCUSATE SODIUM 100 MG (COLACE) CAP PO SCH (20:37)
[2019-06-10] MEDS ORDERED: polyethylene glycoL POWDER 17 GM (MIRALAX) PACK PO SCH (21:00)
--- NOTE | 2019-06-10 23:00 | NUR ---
PT C/O FREQUENT URINATION THAT IS HINDERING HER FROM SLEEPING. THIS RN HAS EXPLAINED TO HER THAT HER IV IS IMPORTANT TO KEEP GOING D/T HER LOW NA. DR CHARLES, CANAL STRUCTURE OPERATOR FOR HOSPITALIST, AGREED AND SAID TO CONTINUE THERAPY. THIS RN LET THE PT KNOW. SHE TOLD THIS NURSE MANAGER SCIENTIFIC SHE UNDERSTOOD.
[2019-06-11] VITALS: BP 136/71
[2019-06-11] MEDS: NS W/KCL 20 MEQ/L 1,000 ML IV SCH (00:49)
[2019-06-11] MEDS: NITROFURANTOIN 100 MG (MACROBID) CAPSULE PO SCH (05:48)
[2019-06-11 06:51] LABS: BUN/CREATININE RATIO 8; CALCIUM 8.4 MG/DL (8.5-10.1); CARBON DIOXIDE 22 MMOL/L (21-32); CHLORIDE 98 MMOL/L (98-107); CREATININE SERUM 0.66 MG/DL (0.60-1.30); GFR ESTIMATED > 60; GLUCOSE 80 MG/DL (70-105); POTASSIUM 3.7 MMOL/L (3.6-5.0); SODIUM 130 MMOL/L (135-145)
[2019-06-11 08:00] VITALS: BP 149/70
[2019-06-11] MEDS: DOCUSATE SODIUM 100 MG (COLACE) CAP PO SCH (09:50)
[2019-06-11] MEDS ORDERED: NITR100C10 PO (09:52)
--- NOTE | 2019-06-11 09:53 | Occ Therapy Progress Note ---
Therapy Progress Note Pt seen from : Pt seen in bed, no c/o pain, pt states she is going home today. Pt denies all ADLs, stating she has completed toileting and hair/ oral care this morning. Pt denies UE theraband exercises, stating she feels confident that she will be safe/ successful at home. Pt educated on safety measures within home, pt nods and states she feels confident on return home. All needs met, call light in reach. Pt at [facility] and refuses OT tx on this date; d/c OT at this time. AMANDA LOZADA OTR Jun 11, 2019 09:53
--- NOTE | 2019-06-14 13:48 | Discharge Summary ---
Discharge Summary Hospital Course Was the Problem List Reviewed?: Yes Problems/Dx: (1) Hyponatremia Status: Acute (2) E. coli urinary tract infection Status: Acute (3) Hypomagnesemia Status: Acute Hospital Course Date of Admission: Jun 08, 2019 at 10:18 Admission Diagnosis : hyponatremia Family Physician/Provider: Turner Guzman MD Date of Discharge: 06/14/19 Discharge Diagnosis: hyponatremia Hospital Course: Monserrat Hodge is an 83-year-old female who was admitted with severe hyponatremia. Upon arrival, her sodium was 112. She was treated with normal saline and her sodium gradually improved. Her hyponatremia was thought to be du e to a mixture of hypovolemia and SIADH. A CT scan of her chest was performed which did not reveal a cause for her SIADH. Her course was complicated by urinary tract infection and she was given a course of Macrobid. She should follow-up with her primary care physician in about a week and repeat a BMP to monitor her sodium level. Labs and Pending Lab Test: Microbiology 06/08/19 Urine Culture - Final, Complete Escherichia coli Home Meds Active Nitrofurantoin Larue-Mcr 100 mg (Nitrofurantoin Monohyd/M-Cryst) 100 Mg Capsule 100 Mg PO BID WITH MEALS 2 Days Reported Refresh Tears (Carboxymethylcellulose Sodium) 15 Ml Drops 2 Drops OU PRN PRN Preservision Areds 2 Softgel (Vit C/E/Zn/Coppr/Lutein/Zeaxan) 1 Each Capsule 1 Each PO BID Timolol Maleate 0.5% (Timolol Maleate) 5 Ml Drops 1 Drop OU DAILY Amlodipine Besylate 5 Mg Tablet 10 Mg PO DAILY TAKES 2 (5MG) TABS TO EQUAL 10NG Lumigan (Bimatoprost) 2.5 Ml Drops 1 Drop OU HS Assessment/Pt Instructions take medications as prescribed. Complete her course of antibiotics even if you're feeling better. Follow-up with your primary care physician. Repeat BMP in about one week. Discharge Planning: <30 minutes discharge planning Discharge Instructions Discharge Diet: No Restrictions Activity as Tolerated: Yes Discharge Physical Examination Vital Signs Vital Signs Date Time Temp Pulse Resp B/P (MAP) Pulse Ox O2 Delivery O2 Flow Rate FiO2 06/11/19 10:45 06/11/19 08:00 37.0 83 20 97 Room Air General Appearance: No Apparent Distress, WD/WN Respiratory: Lungs Clear, Normal Breath Sounds, No Respiratory Distress Cardiovascular: Regular Rate, Rhythm, No Edema, No Murmur Gastrointestinal: Normal Bowel Sounds, Non Tender, Soft Extremity: Normal Inspection, Non Tender, No Pedal Edema Skin: Normal Color, Warm/Dry Neurologic/Psychiatric: Alert, Oriented x3, No Motor/Sensory Deficits, Normal Mood/Affect Allergies: Coded Allergies: Sulfa (Sulfonamide Antibiotics) (Verified Allergy, Unknown, 06/08/19) Copy Copies To 1: TURNER GUZMAN MD Discharge Summary Date of Admission Jun 08, 2019 at 10:18 Date of Discharge Jun 11, 2019 at 10:50 Discharge Date: Jun 11, 2019 Discharge Time: 10:50 Admission Diagnosis hyponatremia Discharge Diagnosis Hyponatremia (1) Hyponatremia Status: Acute (2) E. coli urinary tract infection Status: Acute (3) Hypomagnesemia Status: Acute Clinical Quality Measures DVT/VTE Risk/Contraindication: Risk Factor Score Per Nursin RFS Level Per Nursing on Admit: 2=Moderate YURY OCONNOR MD Jun 14, 2019 13:48
== END 2019-06-11 10:50 | disposition home or self-care (01) | DRG 690 ==
LOC: EDUNIT# 08:42 → ER 08:43 → 4TH 10:18
PROVIDERS: ADMIT Family Medicine; ATTEND Family Medicine
DX: N39.0 Urinary tract infection, site not specified (principal); E87.1 Hypo-osmolality and hyponatremia; B96.20 Unspecified Escherichia coli [E. coli] as the cause of diseases classified elsewhere; R39.15 Urgency of urination; E87.6 Hypokalemia; E83.42 Hypomagnesemia; I10 Essential (primary) hypertension; K59.00 Constipation, unspecified; R53.81 Other malaise; H40.9 Unspecified glaucoma; Z90.710 Acquired absence of both cervix and uterus
CPT/HCPCS: 36415; 71045; 71260; 80048; 80053; 81000; 83735; 84133; 84300; 84443; 85025; 85027; 87077; 87088; 87186; 96361; 96374

== ENCOUNTER → 2019-06-14 | Outpatient (CLI) | payer MEDICARE ==
[~2019-06-14] MED LIST changes: +AMLO5TAB9 PO; +CARB15DR OU; +NITR100C10 PO; +TIMO5DRO5 OU; +VIT1CAPS44 PO
== END ==
LOC: LAB 14:56
PROVIDERS: ATTEND Internal Medicine
DX: R19.7 Diarrhea, unspecified (principal)
CPT/HCPCS: 87324; 87449

== ENCOUNTER → 2020-05-05 | Outpatient (CLI) | payer MEDICARE ==
[~2020-05-05] MED LIST changes: +AMLO-250 PO; -AMLO5TAB9 PO
== END ==
LOC: LABNPT 05:49
PROVIDERS: ATTEND Internal Medicine
DX: U07.1 COVID-19 (principal)
CPT/HCPCS: 87635

== ENCOUNTER → 2020-05-05 | Outpatient (CLI) | payer MEDICARE ==
[~2020-05-05] VITALS: Ht 152.4 cm; Wt 48.1 kg
[~2020-05-05] MED LIST changes: +BAMLANIVIMAB 700 MG in NS 200 ML IV ONE; +EPINEPHrine INJECTION 1 MG/ML AMP IM PRN; +diphenhydrAMINE 50 MG/ML INJ (BENADRYL) IV PRN
[2020-05-05 13:36] VITALS: BP 164/85
[2020-05-05 15:40] VITALS: BP 122/72
== END ==
LOC: INFUSION 13:30
PROVIDERS: ATTEND Nurse Practitioner Family
DX: U07.1 COVID-19 (principal)